=== PATIENT | male | born 1955 | race Caucasian/White ===

== ENCOUNTER 2020-03-25 14:29 | Outpatient (RCR) | payer OTHER ==
[2020-04-01] MEDS ORDERED: FOLI0.8C PO (13:34)
[2020-04-01] MEDS ORDERED: METF-397 PO (13:34)
[2020-04-01] MEDS ORDERED: CYAN100088 PO (13:34)
[2020-04-01] MEDS ORDERED: ASPI-999 PO (13:34)
[2020-04-01] MEDS ORDERED: OMEG100032 PO (13:34)
[2020-04-01] MEDS ORDERED: CHOL10002 PO (13:34)
[2020-04-01] MEDS ORDERED: ZINC50TA51 PO (13:34)
[2020-04-01] MEDS ORDERED: THIA100T66 PO (13:34)
[2020-04-01] MEDS ORDERED: LISI20TA26 PO (13:34)
== END 2020-06-23 | disposition home or self-care (01) ==
LOC: ONC 14:29
PROVIDERS: ATTEND Radiology Radiation Oncology
DX: C61 Malignant neoplasm of prostate (principal); E11.9 Type 2 diabetes mellitus without complications; F10.20 Alcohol dependence, uncomplicated; F17.210 Nicotine dependence, cigarettes, uncomplicated; Z80.1 Family history of malignant neoplasm of trachea, bronchus and lung
CPT/HCPCS: 76873; G0463; 99205

== ENCOUNTER 2020-04-06 05:33 | Outpatient (RCR) | payer OTHER ==
[~2020-04-06] VITALS: Ht 177.8 cm; Wt 95.5 kg
[~2020-04-06 05:33] MED LIST: ASPI-999 PO; CHOL10002 PO; CYAN100088 PO; FOLI0.8C PO; LISI-552 PO; METF-397 PO; OMEG100032 PO; THIA100T66 PO; ZINC50TA51 PO
== END 2020-04-06 10:43 | disposition home or self-care (01) ==
LOC: PREOP 05:33
PROVIDERS: ATTEND Radiology Radiation Oncology
DX: Z01.812 Encounter for preprocedural laboratory examination (principal); C61 Malignant neoplasm of prostate; Z20.828 Contact with and (suspected) exposure to other viral communicable diseases
CPT/HCPCS: 87635

== ENCOUNTER 2020-04-08 09:31 | Day surgery (SDC) | payer OTHER ==
[2020-04-08] VITALS (9 sets, daily range): BP systolic 98–183; BP diastolic 66–96
[~2020-04-08] VITALS: Ht 177.8 cm; Wt 95.5 kg
--- NOTE | 2020-04-08 09:56 | Progress Note-Pre Operative ---
Pre-Operative Progress Note H&P Reviewed The H&P was reviewed, patient examined and no changes noted. Date Seen by Provider: Apr 08, 2020 Time Seen by Provider: 09:56 Date H&P Reviewed: Apr 08, 2020 Time H&P Reviewed: 09:56 Pre-Operative Diagnosis: Prostate cancer cT1c, PSA 15.4, Robert 6 YOSSI MOYA MD Apr 08, 2020 09:56
--- NOTE | 2020-04-08 10:01 | Discharge Inst-Simple/Standard ---
Discharge Inst-Standard Reconcile Patient Problems Problems Reviewed?: Yes Discharge Medications New, Converted or Re-Newed RX: Other (patient already has) Patient Instructions/Follow Up Plan of Care/Instructions/FU: 04/22/20 at 8:[address] simulation w/ MRI at [facility] rad onc Activity as Tolerated: Yes Discharge Diet: No Restrictions YOSSI MOYA MD Apr 08, 2020 10:01
[2020-04-08] MEDS ORDERED: LACTATED RINGERS 1,000 ML IV PRN (10:19)
[2020-04-08] MEDS ORDERED: LEVOFLOXACIN 500 MG/100 ML IV 100 ML ONE (10:24)
[2020-04-08] MEDS ORDERED: LEVOFLOXACIN 500 MG/100 ML IV 100 ML IV ONE (10:30)
[2020-04-08] MEDS ORDERED: MIDAZOLAM 2 MG/2 ML (VERSED) VIAL ONE (10:48)
[2020-04-08] MEDS ORDERED: fentaNYL INJECTION 100 MCG/2 ML AMP ONE (10:48)
[2020-04-08] MEDS ORDERED: proPOfol 200 MG/20 ML (DIPRIVAN) VIAL IV ONE (10:54)
[2020-04-08] MEDS ORDERED: SEVOFLURANE (ULTANE) 15 ML INHAL SOLN ONE (10:54)
[2020-04-08] MEDS ORDERED: LIDOCAINE PF 2% 5 ML (XYLOCAINE) VIAL ONE (10:54)
[2020-04-08] MEDS ORDERED: ONDANSETRON 4 MG/2 ML (SDV) Z0FRAN ONE (10:54)
--- NOTE | 2020-04-08 11:42 | Progress Note-Post Operative ---
Post-Operative Progess Note Surgeon (s)/Poultry Tender (s) Surgeon Darrick ESPINOSA MD Poultry Tender: N/A Pre-Operative Diagnosis Prostate cancer cT1c, PSA 15.4, Orbert 6 Post-Operative Diagnosis Same as preop Procedure & Operative Findings Date of Procedure 04/08/20 Procedure Performed/Findings (1) Fiducial gold seed marker placement (2) Injection of biodegradable hydrogel prostate-rectal spacer utilizing the Space[employer] system Anesthesia Type General Estimated Blood Loss Estimated blood loss (mL): minimal Specimens/Packing Specimens Removed N/A Packing: N/A YOSSI MOYA MD Apr 08, 2020 11:42
--- NOTE | 2020-04-08 12:13 | Anesthesia-General Post-Op ---
General Patient Condition Mental Status/LOC: Same as Preop Cardiovascular: Satisfactory Nausea/Vomiting: Absent Respiratory: Satisfactory Pain: Controlled Complications: Absent Post Op Complications Complications None Follow Up Care/Instructions Patient Instructions None needed. Anesthesia/Patient Condition Patient Condition Patient is doing well, no complaints, stable vital signs, no apparent adverse anesthesia problems. No complications reported per nursing. ROMEO VAZQUEZ CRNA Apr 08, 2020 12:13
== END 2020-04-08 13:15 | disposition home or self-care (01) ==
LOC: SDC 09:31
PROVIDERS: ATTEND Radiology Radiation Oncology
DX: C61 Malignant neoplasm of prostate (principal); I10 Essential (primary) hypertension; E11.9 Type 2 diabetes mellitus without complications; E78.00 Pure hypercholesterolemia, unspecified; Z79.84 Long term (current) use of oral hypoglycemic drugs; Z79.899 Other long term (current) drug therapy; Z79.82 Long term (current) use of aspirin; Z80.1 Family history of malignant neoplasm of trachea, bronchus and lung
CPT/HCPCS: 82962; 87081